=== PATIENT | female | born 1985 | race Caucasian/White ===

== ENCOUNTER 2019-01-05 05:44 | Inpatient (IN) | payer OTHER ==
[2019-01-05] MEDS: LACTATED RINGER'S 1,000 ML IV ×4 (06:06→22:06)
[2019-01-05] MEDS ORDERED: MISOPROSTOL 200 MCG TAB PR ×2 (06:30→08:00)
[2019-01-05] MEDS ORDERED: METHYLERGONOVINE 0.2 MG INJ IM (06:30)
[2019-01-05] MEDS ORDERED: CARBOPROST 250 MCG INJ IM (06:30)
[2019-01-05] MEDS ORDERED: OXYTOCIN 30 UNITS/LR 500 ML IV (06:30)
[2019-01-05 06:48] LABS: ADD MAN DIFF? NO
[2019-01-05 06:54] LABS: WHITE BLOOD COUNT 8.6 10^3/ul (4.8-10.8)
[2019-01-05 06:54] LABS: BASOPHILS % 0.2 % (0.0-2.0); HEMATOCRIT 32.2 % (37.0-47.0); HEMOGLOBIN 11.1 g/dl (12.0-16.0); LYMPHOCYTES # 1.9 10^3/ul (0.8-2.9); LYMPHOCYTES % 22.3 % (15.0-51.0); MEAN CORPUSCULAR HEMOGLOBIN 32.5 pg (29.0-33.0); MEAN CORPUSCULAR HGB CONC 34.5 g/dl (32.0-37.0); MEAN CORPUSCULAR VOLUME 94.2 fl (82.0-101.0); MEAN PLATELET VOLUME 10.3 fl (7.4-10.4); MONOCYTE # 0.6 10^3/ul (0.3-0.9); MONOCYTES % 6.7 % (0.0-11.0); PLATELET COUNT 145 10^3/UL (140-415); RED BLOOD COUNT 3.42 10^6/ul (4.20-5.40); RED CELL DISTRIBUTION WIDTH 14.5 % (11.5-14.5)
[2019-01-05] MEDS ORDERED: OXYTOCIN 30 UNITS/LR 500 ML BAG IV (07:00)
[2019-01-05 07:10] LABS: INR 0.94; PROTIME 12.7 Sec (11.9-14.9)
[2019-01-05 07:11] LABS: PARTIAL THROMBOPLASTIN TIME 25.2 Sec (23.0-35.0)
[2019-01-05 07:56] LABS: HEPATITIS B SURFACE ANTIGEN NEGATIVE (NEGATIVE)
[2019-01-05] MEDS ORDERED: FENTAnyl 50 MCG/ML VIAL ×4 (07:56→09:01)
[2019-01-05] MEDS ORDERED: NALOXONE (0.4 MG/ML) INJ IV ×2 (08:00→10:00)
[2019-01-05] MEDS ORDERED: LANOLIN HPA 1 PKT TOP (08:00)
[2019-01-05] MEDS ORDERED: NA PHOSPHATE/BIPHOS 133 ML ENEMA PR (08:00)
[2019-01-05] MEDS ORDERED: PHENYLephrine (100 MCG/ML) 10ML SYG (08:05)
[2019-01-05] MEDS ORDERED: PHENYLephrine 10 MG INJ (08:05)
[2019-01-05] MEDS ORDERED: PROPOFOL 20 ML (08:46)
[2019-01-05] MEDS ORDERED: LIDOCAINE 100 MG SYRINGE (08:46)
[2019-01-05] MEDS ORDERED: SUCCINYLCHOLINE CHLORIDE 100 MG/5 ML SYG IV (08:46)
[2019-01-05] MEDS: SENNA/DOCUSATE NA (8.6MG/50MG) TAB PO ×2 (09:00→21:00)
[2019-01-05] MEDS ORDERED: HYDROmorphONE 2 MG/ML SYG (09:04)
[2019-01-05] MEDS ORDERED: KETOROLAC 30 MG INJ (09:14)
[2019-01-05] MEDS: HYDROmorphONE 0.2 MG/ML PCA IV ×2 (09:22→16:08)
[2019-01-05] MEDS: OXYTOCIN 30 UNITS/LR 500 ML IV ×2 (09:33→13:12)
[2019-01-05] MEDS ORDERED: ONDANSETRON 4 MG INJ IV ×2 (10:00)
[2019-01-05] MEDS ORDERED: METOCLOPRAMIDE 10 MG INJ IV (10:00)
[2019-01-05] MEDS ORDERED: HYDROmorphONE 0.5 MG/0.5 ML SYG IV ×2 (10:00)
[2019-01-05] MEDS ORDERED: ALBUTEROL 0.083% (NEB) 2.5 MG/3 ML AMP HHN (10:00)
[2019-01-05] MEDS ORDERED: HYDROmorphONE 1 MG/5 ML IV SYRINGE IV ×3 (10:00)
[2019-01-05] MEDS ORDERED: FENTAnyl 50 MCG/ML VIAL IV ×3 (10:00)
[2019-01-05] MEDS ORDERED: DIPHENHYDRAMINE 50 MG INJ IV ×2 (10:00)
[2019-01-05] MEDS: HYDROmorphONE 1 MG/ML SYG IV ×2 (10:02→10:35)
[2019-01-05] MEDS: KETOROLAC 30 MG INJ IV ×2 (10:08→17:59)
[2019-01-05] MEDS ORDERED: HYDROmorphONE 2 MG TAB PO (11:30)
[2019-01-05] MEDS: HYDROmorphONE 2 MG/ML SYG IV (11:58)
[2019-01-05] MEDS: IBUPROFEN 600 MG TAB PO ×2 (12:00→18:00)
[2019-01-05] MEDS: CEFAZOLIN 2 GM/50 ML (PMX) 50 ML IVPB (14:22)
[2019-01-05 19:42] LABS: RAPID PLASMA REAGIN NONREACTIVE (NR)
[2019-01-06] MEDS: LACTATED RINGER'S 1,000 ML IV ×3 (01:15→22:06)
[2019-01-06] MEDS: KETOROLAC 30 MG INJ IV ×2 (01:21→08:22)
[2019-01-06] MEDS: IBUPROFEN 600 MG TAB PO ×5 (06:00→23:56)
[2019-01-06 07:56] LABS: ADD MAN DIFF? NO
[2019-01-06 08:08] LABS: WHITE BLOOD COUNT 10.6 10^3/ul (4.8-10.8)
[2019-01-06 08:08] LABS: BASOPHILS % 0.3 % (0.0-2.0); EOSINOPHILS # 0.1 10^3/ul (0.0-0.5); EOSINOPHILS % 0.8 % (0.0-7.0); HEMATOCRIT 26.3 % (37.0-47.0); HEMOGLOBIN 9.1 g/dl (12.0-16.0); LYMPHOCYTES # 1.7 10^3/ul (0.8-2.9); LYMPHOCYTES % 15.8 % (15.0-51.0); MEAN CORPUSCULAR HEMOGLOBIN 32.5 pg (29.0-33.0); MEAN CORPUSCULAR HGB CONC 34.6 g/dl (32.0-37.0); MEAN CORPUSCULAR VOLUME 93.9 fl (82.0-101.0); MEAN PLATELET VOLUME 10.1 fl (7.4-10.4); MONOCYTE # 0.5 10^3/ul (0.3-0.9); MONOCYTES % 4.4 % (0.0-11.0); NEUTROPHIL # 8.3 10^3/ul (1.6-7.5); NEUTROPHILS % 78.2 % (39.0-77.0); PLATELET COUNT 127 10^3/UL (140-415); RED CELL DISTRIBUTION WIDTH 14.4 % (11.5-14.5)
[2019-01-06] MEDS: SENNA/DOCUSATE NA (8.6MG/50MG) TAB PO ×2 (08:22→20:27)
[2019-01-06] MEDS: HYDROCODONE/APAP (5/325) TAB PO ×3 (12:36→23:55)
[2019-01-07] MEDS: IBUPROFEN 600 MG TAB PO ×2 (06:14→12:00)
[2019-01-07] MEDS: SENNA/DOCUSATE NA (8.6MG/50MG) TAB PO (09:00)
[2019-01-08] MEDS ORDERED: DIPHTH/TET/ACEL PERTUSS (ADULT) 0.5 ML VIAL IM* (09:00)
[2019-01-08] MEDS ORDERED: MEASLES,MUMPS,RUBELLA VACCINE INJ SC* (09:00)
== END 2019-01-07 12:35 | disposition home or self-care (01) | DRG 785 ==
LOC: L-D 05:44 → PP1 12:53
PROVIDERS: Specialist
PROC: 10D00Z1 Extraction of Products of Conception, Low, Open Approach (ICD-10-PCS; principal; 2019-01-05 07:30)
PROC: 0UB70ZZ Excision of Bilateral Fallopian Tubes, Open Approach (ICD-10-PCS; 2019-01-05 07:30)
DX: O34.219 Maternal care for unspecified type scar from previous cesarean delivery (principal); Z30.2 Encounter for sterilization; M06.9 Rheumatoid arthritis, unspecified; Z3A.39 39 weeks gestation of pregnancy; Z37.0 Single live birth; O75.89 Other specified complications of labor and delivery
CPT/HCPCS: 85025; 85610; 85730; 86592; 86850; 86870; 86900; 86901; 87340; 88302; 99464